=== PATIENT | male | born 1970 | race American Indian/Alaskan Native ===

== ENCOUNTER 2019-09-18 12:00 | Emergency (ER) | payer SELFPAY ==
--- NOTE | 2019-09-18 12:10 | Emergency Department Report ---
Blank Doc - Documentation Documentation: 48-year-old male that presents with nausea. HX of DM and HTN. This initial assessment/diagnostic orders/clinical plan/treatment(s) is/are subject to change based on patient's health status, clinical progression and re- assessment by fellow clinical providers in the ED. Further treatment and workup at subsequent clinical providers discretion. Patient/guardians urged not to elope from the ED as their condition may be serious if not clinically assessed and managed. Initial orders include: 1- Patient sent to [facility] for further evaluation and treatment 2- labs 3- UA
[2019-09-18 12:11] VITALS: BP 153/94
[2019-09-18 12:34] LABS: Hematocrit 48.9 % (35.5-45.6); Hemoglobin 16.9 gm/dl (11.8-15.2); Mean Corpuscular HGB Conc 35 % (32-34); Mean Corpuscular Volume 87 fl (84-94); Platelet Count 175 K/mm3 (140-440); Red Blood Count 5.59 M/mm3 (3.65-5.03); Red Cell Distribution Width 13.5 % (13.2-15.2)
[2019-09-18 12:36] LABS: Bilirubin,Urine NEG (Negative); Blood,Urine SM (Negative); Color,Urine Straw (Yellow); Mucus,Urine FEW /HPF; Protein,Urine <15 mg/dL mg/dL (Negative); Urobilinogen,Urine < 2.0 mg/dL (<2.0)
[2019-09-18 12:59] LABS: Alanine Aminotransferase 23 units/L (7-56); Albumin 4.9 g/dL (3.9-5); BUN/Creatinine Ratio 21; Blood Urea Nitrogen 17 mg/dL (9-20); Calcium 9.5 mg/dL (8.4-10.2); Hemolysis Index 5
[2019-09-18 13:20] LABS: Basophils % (Manual) 0 % (0.0-1.8); Eosinophils % (Manual) 0 % (0.0-4.3); Total Cells Counted 100
[2019-09-18 13:21] LABS: Platelet Estimate Consistent w Auto; RBC Morphology Normal
--- NOTE | 2019-09-18 15:37 | Emergency Department Report ---
ED General Adult HPI - General Chief complaint: Nausea/Vomiting/Diarrhea Stated complaint: NAUSEATED/HIGH SUGAR Time Seen by Provider: 09/18/19 12:08 Source: patient Mode of arrival: Ambulatory Limitations: No Limitations - History of Present Illness Initial comments: Patient presents to the emergency department with a chief complaint of nausea, polyuria, polydipsia. Patient states that he has diabetes and takes metformin for control of his type 2 diabetes. Patient states recently he has decreased from taking it twice a day to once daily due to the side effects of the medication. Patient denies abdominal pain, shortness of breath, or chest pain. -: Sudden Severity scale (0 -10): 0 Improves with: none Worsens with: none Associated Symptoms: denies other symptoms Treatments Prior to Arrival: none - Related Data Allergies Allergy/AdvReac Type Severity Reaction Status Date / Time amoxicillin Allergy Hives Verified 09/18/19 12:06 sulfamethoxazole Allergy Hives Verified 09/18/19 12:06 [From Bactrim] trimethoprim [From Bactrim] Allergy Hives Verified 09/18/19 12:06 ED Review of Systems ROS: Stated complaint: NAUSEATED/HIGH SUGAR Other details as noted in HPI Comment: All other systems reviewed and negative Constitutional: denies: chills, fever Eyes: denies: eye pain, eye discharge, vision change ENT: denies: ear pain, throat pain Respiratory: denies: cough, shortness of breath, wheezing Cardiovascular: denies: chest pain, palpitations Endocrine: no symptoms reported Gastrointestinal: denies: abdominal pain, nausea, diarrhea Genitourinary: denies: urgency, dysuria Musculoskeletal: denies: back pain, joint swelling, arthralgia Skin: denies: rash, lesions Neurological: denies: headache, weakness, paresthesias Psychiatric: denies: anxiety, depression Hematological/Lymphatic: denies: easy bleeding, easy bruising ED Past Medical Hx - Past Medical History Previous Medical History?: Yes Hx Hypertension: Yes Hx Diabetes: Yes - Surgical History Past Surgical History?: Yes Additional Surgical History: Cardiac cath - Social History Smoking Status: Never Smoker Substance Use Type: None ED Physical Exam - General Limitations: No Limitations General appearance: alert, in no apparent distress - Head Head exam: Present: atraumatic, normocephalic - Eye Eye exam: Present: normal appearance - ENT ENT exam: Present: mucous membranes dry - Neck Neck exam: Present: normal inspection - Respiratory Respiratory exam: Present: normal lung sounds bilaterally. Absent: respiratory distress - Cardiovascular Cardiovascular Exam: Present: regular rate, normal rhythm. Absent: systolic murmur, diastolic murmur, rubs, gallop - GI/Abdominal GI/Abdominal exam: Present: soft, normal bowel sounds. Absent: distended, tenderness - Rectal Rectal exam: Present: deferred - Extremities Exam Extremities exam: Present: normal inspection - Back Exam Back exam: Present: normal inspection - Neurological Exam Neurological exam: Present: alert, oriented X3 - Psychiatric Psychiatric exam: Present: normal affect, normal mood - Skin Skin exam: Present: warm, dry, intact, normal color. Absent: rash ED Course Vital Signs 09/18/19 12:09 Temperature 97.5 F L Pulse Rate 91 H Respiratory 18 Rate Blood Pressure 153/94 O2 Sat by Pulse 100 Oximetry ED Medical Decision Making - Lab Data Result diagrams: 09/18/19 12:14 09/18/19 12:14 Lab Results 09/18/19 09/18/19 09/18/19 Range/Units 12:14 12:14 12:14 WBC 3.6 L (4.5-11.0) K/mm3 RBC 5.59 H (3.65-5.03) M/mm3 Hgb 16.9 H (11.8-15.2) gm/dl Hct 48.9 H (35.5-45.6) % MCV 87 (84-94) fl MCH 30 (28-32) pg MCHC 35 H (32-34) % RDW 13.5 (13.2-15.2) % Plt Count 175 (140-440) K/mm3 Lymph % (Auto) Director Title Add Manual Diff Complete Total Counted 100 Seg Neutrophils % Director Title Seg Neuts % (Manual) 33.0 L (40.0-70.0) % Band Neutrophils % 0 % Lymphocytes % (Manual) 57.0 H (13.4-35.0) % Reactive Lymphs % (Man) 0 % Monocytes % (Manual) 10.0 H (0.0-7.3) % Eosinophils % (Manual) 0 (0.0-4.3) % Basophils % (Manual) 0 (0.0-1.8) % Metamyelocytes % 0 % Myelocytes % 0 % Promyelocytes % 0 % Blast Cells % 0 % Nucleated RBC % Not Reportable Seg Neutrophils # Man 1.2 L (1.8-7.7) K/mm3 Band Neutrophils # 0.0 K/mm3 Lymphocytes # (Manual) 2.1 (1.2-5.4) K/mm3 Abs React Lymphs (Man) 0.0 K/mm3 Monocytes # (Manual) 0.4 (0.0-0.8) K/mm3 Eosinophils # (Manual) 0.0 (0.0-0.4) K/mm3 Basophils # (Manual) 0.0 (0.0-0.1) K/mm3 Metamyelocytes # 0.0 K/mm3 Myelocytes # 0.0 K/mm3 Promyelocytes # 0.0 K/mm3 Blast Cells # 0.0 K/mm3 WBC Morphology Not Reportable Hypersegmented Neuts Not Reportable Hyposegmented Neuts Not Reportable Hypogranular Neuts Not Reportable Smudge Cells Not Reportable Toxic Granulation Not Reportable Toxic Vacuolation Not Reportable Dohle Bodies Not Reportable Pelger-Huet Anomaly Not Reportable Dayanara Rods Not Reportable Platelet Estimate Consistent w auto Clumped Platelets Not Reportable Plt Clumps, EDTA Not Reportable Large Platelets Not Reportable Giant Platelets Not Reportable Platelet Satelliting Not Reportable Plt Morphology Comment Not Reportable RBC Morphology Normal Dimorphic RBCs Not Reportable Polychromasia Not Reportable Hypochromasia Not Reportable Poikilocytosis Not Reportable Anisocytosis Not Reportable Microcytosis Not Reportable Macrocytosis Not Reportable Spherocytes Not Reportable Pappenheimer Bodies Not Reportable Sickle Cells Not Reportable Target Cells Not Reportable Tear Drop Cells Not Reportable Ovalocytes Not Reportable Helmet Cells Not Reportable [place] Bodies Not Reportable [place] Rings Not Reportable Donny Cells Not Reportable Bite Cells Not Reportable Crenated Cell Not Reportable Elliptocytes Not Reportable Acanthocytes (Spur) Not Reportable Rouleaux Not Reportable Hemoglobin C Crystals Not Reportable Schistocytes Not Reportable Malaria parasites Not Reportable Sorin Bodies Not Reportable Hem Pathologist Commnt No VBG pH 7.301 L (7.320-7.420) Sodium 135 L (137-145) mmol/L Potassium 4.0 (3.6-5.0) mmol/L Chloride 97.4 L (98-107) mmol/L Carbon Dioxide 24 (22-30) mmol/L Anion Gap 18 mmol/L BUN 17 (9-20) mg/dL Creatinine 0.8 (0.8-1.5) mg/dL Estimated GFR > 60 ml/min BUN/Creatinine Ratio 21 % Glucose 168 H (75-100) mg/dL Calcium 9.5 (8.4-10.2) mg/dL Total Bilirubin 0.30 (0.1-1.2) mg/dL AST 21 (5-40) units/L ALT 23 (7-56) units/L Alkaline Phosphatase 74 (35-129) units/L Total Protein 7.9 (6.3-8.2) g/dL Albumin 4.9 (3.9-5) g/dL Albumin/Globulin Ratio 1.6 % Urine Color (Yellow) Urine Turbidity (Clear) Urine pH (5.0-7.0) Ur Specific [place] (1.003-1.030) Urine Protein (Negative) mg/dL Urine Glucose (UA) (Negative) mg/dL Urine Ketones (Negative) mg/dL Urine Blood (Negative) Urine Nitrite (Negative) Urine Bilirubin (Negative) Urine Urobilinogen (<2.0) mg/dL Ur Leukocyte Esterase (Negative) Urine WBC (Auto) (0.0-6.0) /HPF Urine RBC (Auto) (0.0-6.0) /HPF Urine Mucus /HPF 09/18/19 Range/Units 12:14 WBC (4.5-11.0) K/mm3 RBC (3.65-5.03) M/mm3 Hgb (11.8-15.2) gm/dl Hct (35.5-45.6) % MCV (84-94) fl MCH (28-32) pg MCHC (32-34) % RDW (13.2-15.2) % Plt Count (140-440) K/mm3 Lymph % (Auto) Add Manual Diff Total Counted Seg Neutrophils % Seg Neuts % (Manual) (40.0-70.0) % Band Neutrophils % % Lymphocytes % (Manual) (13.4-35.0) % Reactive Lymphs % (Man) % Monocytes % (Manual) (0.0-7.3) % Eosinophils % (Manual) (0.0-4.3) % Basophils % (Manual) (0.0-1.8) % Metamyelocytes % % Myelocytes % % Promyelocytes % % Blast Cells % % Nucleated RBC % Seg Neutrophils # Man (1.8-7.7) K/mm3 Band Neutrophils # K/mm3 Lymphocytes # (Manual) (1.2-5.4) K/mm3 Abs React Lymphs (Man) K/mm3 Monocytes # (Manual) (0.0-0.8) K/mm3 Eosinophils # (Manual) (0.0-0.4) K/mm3 Basophils # (Manual) (0.0-0.1) K/mm3 Metamyelocytes # K/mm3 Myelocytes # K/mm3 Promyelocytes # K/mm3 Blast Cells # K/mm3 WBC Morphology Hypersegmented Neuts Hyposegmented Neuts Hypogranular Neuts Smudge Cells Toxic Granulation Toxic Vacuolation Dohle Bodies Pelger-Huet Anomaly Dayanara Rods Platelet Estimate Clumped Platelets Plt Clumps, EDTA Large Platelets Giant Platelets Platelet Satelliting Plt Morphology Comment RBC Morphology Dimorphic RBCs Polychromasia Hypochromasia Poikilocytosis Anisocytosis Microcytosis Macrocytosis Spherocytes Pappenheimer Bodies Sickle Cells Target Cells Tear Drop Cells Ovalocytes Helmet Cells [place] Bodies [place] Rings Donny Cells Bite Cells Crenated Cell Elliptocytes Acanthocytes (Spur) Rouleaux Hemoglobin C Crystals Schistocytes Malaria parasites Sorin Bodies Hem Pathologist Commnt VBG pH (7.320-7.420) Sodium (137-145) mmol/L Potassium (3.6-5.0) mmol/L Chloride (98-107) mmol/L Carbon Dioxide (22-30) mmol/L Anion Gap mmol/L BUN (9-20) mg/dL Creatinine (0.8-1.5) mg/dL Estimated GFR ml/min BUN/Creatinine Ratio % Glucose (75-100) mg/dL Calcium (8.4-10.2) mg/dL Total Bilirubin (0.1-1.2) mg/dL AST (5-40) units/L ALT (7-56) units/L Alkaline Phosphatase (35-129) units/L Total Protein (6.3-8.2) g/dL Albumin (3.9-5) g/dL Albumin/Globulin Ratio % Urine Color Straw (Yellow) Urine Turbidity Clear (Clear) Urine pH 5.0 (5.0-7.0) Ur Specific [place] 1.016 (1.003-1.030) Urine Protein <15 mg/dl (Negative) mg/dL Urine Glucose (UA) >=500 (Negative) mg/dL Urine Ketones Neg (Negative) mg/dL Urine Blood Sm (Negative) Urine Nitrite Neg (Negative) Urine Bilirubin Neg (Negative) Urine Urobilinogen < 2.0 (<2.0) mg/dL Ur Leukocyte Esterase Neg (Negative) Urine WBC (Auto) 1.0 (0.0-6.0) /HPF Urine RBC (Auto) 3.0 (0.0-6.0) /HPF Urine Mucus Few /HPF - Medical Decision Making Discussed plan of care with patient Critical care attestation.: If time is entered above; I have spent that time in minutes in the direct care of this critically ill patient, excluding procedure time. ED Disposition Clinical Impression: Nausea, Polydipsia Disposition: - TO HOME OR SELFCARE Is pt being admited?: No Does the pt Need Aspirin: No Condition: Stable Instructions: Acute Nausea and Vomiting (ED) Additional Instructions: return if worse Referrals: PRIMARY CARE, [Primary Care Provider] - 3-5 Days AMARIS ROBIN MD [Staff Physician] - 3-5 Days Time of Disposition: 15:35
== END 2019-09-18 15:45 | disposition home or self-care (01) ==
LOC: ED 12:00
DX: R63.1 Polydipsia (principal); R11.0 Nausea; R35.8 Other polyuria; I10 Essential (primary) hypertension; E11.9 Type 2 diabetes mellitus without complications; Z88.1 Allergy status to other antibiotic agents; Z88.2 Allergy status to sulfonamides; Z88.8 Allergy status to other drugs, medicaments and biological substances
CPT/HCPCS: 36415; 80053; 81001; 82805; 82962; 85007; 85025; 87086; 93005; 93010; 99283

== ENCOUNTER 2019-10-31 11:02 | Outpatient (CLI) | payer BC ==
[2019-10-31 11:32] LABS: Hematocrit 47.9 % (35.5-45.6); Hemoglobin 16.6 gm/dl (11.8-15.2); Mean Corpuscular HGB Conc 35 % (32-34); Mean Corpuscular Volume 87 fl (84-94); Platelet Count 161 K/mm3 (140-440); Red Blood Count 5.53 M/mm3 (3.65-5.03); Red Cell Distribution Width 13.4 % (13.2-15.2)
[2019-10-31 11:39] LABS: Bilirubin,Urine NEG (Negative); Blood,Urine NEG (Negative); Color,Urine Yellow (Yellow); Protein,Urine <15 mg/dL mg/dL (Negative); Urobilinogen,Urine < 2.0 mg/dL (<2.0)
[2019-10-31 11:41] LABS: Eosinophils # (Auto) 0.1 K/mm3 (0.0-0.4); Eosinophils % (Auto) 1.5 % (0.0-4.3); Monocytes # (Auto) 0.3 K/mm3 (0.0-0.8); Monocytes % (Auto) 9.8 % (0.0-7.3)
[2019-10-31 11:51] LABS: Alanine Aminotransferase 26 units/L (7-56); Albumin 4.7 g/dL (3.9-5); BUN/Creatinine Ratio 20; Blood Urea Nitrogen 16 mg/dL (9-20); Calcium 9.6 mg/dL (8.4-10.2); Chol/HDL Ratio 1.74 %; HDL Cholesterol 77 mg/dL (40-59); Hemolysis Index 10; LDL Cholesterol,Direct 50 mg/dL (50-130)
[2019-10-31 12:33] LABS: Basophils % (Manual) 0 % (0.0-1.8); Platelet Estimate Consistent w Auto; RBC Morphology Normal; Smudge Cells Few; Total Cells Counted 100
[2019-11-02 13:20] LABS: Vitamin D, 25-OH, D2 <4 ng/mL
== END 2019-10-31 11:03 | disposition home or self-care (01) ==
LOC: LAB 11:02
PROVIDERS: ATTEND Emergency Medicine
DX: E11.9 Type 2 diabetes mellitus without complications (principal); E66.09 Other obesity due to excess calories; N39.0 Urinary tract infection, site not specified; Z13.29 Encounter for screening for other suspected endocrine disorder; Z13.21 Encounter for screening for nutritional disorder; Z00.00 Encounter for general adult medical examination without abnormal findings
CPT/HCPCS: 36415; 80053; 80061; 81001; 82306; 82607; 83036; 84443; 85007; 85025

== ENCOUNTER 2019-11-11 16:14 | Outpatient (CLI) | payer BC | END 2019-11-11 16:15 | disposition home or self-care (01) | LOC: LAB 16:14 | PROVIDERS: ATTEND Internal Medicine | DX: Z11.3 Encounter for screening for infections with a predominantly sexual mode of transmission (principal); D72.819 Decreased white blood cell count, unspecified | CPT/HCPCS: 36415; 86592; 86689; 87529; 87591 ==

== ENCOUNTER 2019-11-14 14:18 | Emergency (ER) | payer BC ==
[2019-11-14] MEDS ORDERED: SODIUM CHLORIDE 0.9% 1000 ML 1,000 ML IV ONE (14:21)
--- NOTE | 2019-11-14 14:24 | Emergency Department Report ---
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 He has a history of hypertension. He had been on lisinopril for years but recently had angioedema. He was then changed to Norvasc and he developed severe diarrhea. Therefore he was started on metoprolol 50 mg twice daily. He took his first dose this morning. He has not taken his blood pressure medicines in about a week. Patient is also on metformin for his type 2 diabetes. While working in the ER today the patient said that he became swimmy headed. He was anxious at the time. He had a normal cath in 2004 and a negative stress test in 2017. Patient denies chest pain shortness of breath fever chills or cough. He is am bulatory and is overall in good health. EMR reviewed. I am concerned because the blood pressure in the left arm was 155/85 with a map of 102 and in the right arm was 117/53 with a map of 88. This in the context of the patient being swimmy headed I felt needed to rule out aortic dissection. Patient's heart rate was 60. Patient bikes 4 times a week and usually runs of low heart rate. But am concerned with 50 mg of metoprolol being given this morning. -: Sudden Location: head Associated Symptoms: denies other symptoms. denies: confusion, chest pain, cough, diaphoresis, fever/chills, headaches, loss of appetite, malaise, nausea/vomiting, rash, seizure, shortness of breath, syncope, weakness Treatments Prior to Arrival: none - Related Data Allergies Allergy/AdvReac Type Severity Reaction Status Date / Time amoxicillin Allergy Hives Verified 09/18/19 12:06 sulfamethoxazole Allergy Hives Verified 09/18/19 12:06 [From Bactrim] trimethoprim [From Bactrim] Allergy Hives Verified 09/18/19 12:06 ED Review of Systems ROS: Stated complaint: HIGH B/P Other details as noted in HPI Comment: All other systems reviewed and negative ED Past Medical Hx - Past Medical History Previous Medical History?: Yes Hx Hypertension: Yes Hx CVA: No Hx Heart Attack/AMI: No Hx Congestive Heart Failure: No Hx Diabetes: Yes Hx Deep Vein Thrombosis: No Hx Pulmonary Embolism: No Hx GERD: No Hx Liver Disease: No Hx Renal Disease: No Hx of Cancer: No Hx Sickle Cell Disease: No Hx Arthritis: No Hx Headaches / Migraines: No Hx Seizures: No Hx Kidney Stones: No Hx Psychiatric Treatment: No Hx Asthma: No Hx COPD: No Hx Tuberculosis: No Hx Dementia: No Hx HIV: No - Surgical History Past Surgical History?: Yes Additional Surgical History: Cardiac cath 2004; stress 2018 - Family History Family history: other (mom a/w; dad dec cva due to polysub/hiv) - Social History Smoking Status: Never Smoker Substance Use Type: None ED Physical Exam - General General appearance: alert, in no apparent distress - Head Head exam: Present: atraumatic, normocephalic - Eye Eye exam: Present: normal appearance - ENT ENT exam: Present: mucous membranes moist - Neck Neck exam: Present: normal inspection - Respiratory Respiratory exam: Present: normal lung sounds bilaterally. Absent: respiratory distress - Cardiovascular Cardiovascular Exam: Present: regular rate, normal rhythm. Absent: systolic murmur, diastolic murmur, rubs, gallop - GI/Abdominal GI/Abdominal exam: Present: soft, normal bowel sounds - Rectal Rectal exam: Present: deferred - Extremities Exam Extremities exam: Present: normal inspection - Back Exam Back exam: Present: normal inspection - Neurological Exam Neurological exam: Present: alert, oriented X3 - Psychiatric Psychiatric exam: Present: normal affect, normal mood - Skin Skin exam: Present: warm, dry, intact, normal color. Absent: rash ED Course Vital Signs 11/14/19 11/14/19 11/14/19 14:30 14:37 14:44 Temperature 98.2 F Pulse Rate 81 Respiratory 18 Rate Blood Pressure Blood Pressure 155/85 [Left] Blood Pressure 117/53 [Right] O2 Sat by Pulse 100 97 Oximetry 11/14/19 11/14/19 11/14/19 14:45 14:47 14:49 Temperature Pulse Rate 73 Respiratory 17 18 Rate Blood Pressure Blood Pressure 156/90 [Left] Blood Pressure 143/84 [Right] O2 Sat by Pulse 96 100 Oximetry 11/14/19 11/14/19 11/14/19 15:00 15:16 15:30 Temperature Pulse Rate 70 73 72 Respiratory 14 9 L 14 Rate Blood Pressure 125/64 125/64 124/69 Blood Pressure [Left] Blood Pressure [Right] O2 Sat by Pulse 95 98 96 Oximetry 11/14/19 11/14/19 15:46 16:00 Temperature Pulse Rate 69 77 Respiratory 18 21 Rate Blood Pressure 124/69 124/69 Blood Pressure [Left] Blood Pressure [Right] O2 Sat by Pulse 98 Oximetry - Reevaluation(s) Reevaluation #1: 11/14/19 14:24 home meds metformin and metoprolol 50 (just started today) Reevaluation #2: 11/14/19 14:24 intolerant to norvasc- diarrhea and abd pain christine allergy- angioedema ED Medical Decision Making - Lab Data Result diagrams: 11/14/19 14:33 11/14/19 14:33 - EKG Data -: EKG Interpreted by Me EKG shows normal: sinus rhythm Rate: normal - EKG Data When compared to previous EKG there are: no significant change Interpretation: no acute changes - Radiology Data Radiology results: report reviewed, image reviewed - Medical Decision Making Lab Results 11/14/19 11/14/19 11/14/19 Range/Units 14:33 14:33 14:33 WBC 4.5 (4.5-11.0) K/mm3 RBC 5.44 H (3.65-5.03) M/mm3 Hgb 16.7 H (11.8-15.2) gm/dl Hct 47.1 H (35.5-45.6) % MCV 87 (84-94) fl MCH 31 (28-32) pg MCHC 35 H (32-34) % RDW 13.9 (13.2-15.2) % Plt Count 167 (140-440) K/mm3 Lymph % (Auto) Dock Associate Seg Neutrophils % Dock Associate Sodium 142 (137-145) mmol/L Potassium 4.2 (3.6-5.0) mmol/L Chloride 102.4 (98-107) mmol/L Carbon Dioxide 25 (22-30) mmol/L Anion Gap 19 mmol/L BUN 15 (9-20) mg/dL Creatinine 1.0 (0.8-1.5) mg/dL Estimated GFR > 60 ml/min BUN/Creatinine Ratio 15 % Glucose 219 H (75-100) mg/dL POC Glucose (70-105) Calcium 10.2 (8.4-10.2) mg/dL Total Bilirubin 0.50 (0.1-1.2) mg/dL AST 23 (5-40) units/L ALT 26 (7-56) units/L Alkaline Phosphatase 83 (35-129) units/L Troponin T < 0.010 (0.00-0.029) ng/mL Total Protein 7.4 (6.3-8.2) g/dL Albumin 4.8 (3.9-5) g/dL Albumin/Globulin Ratio 1.8 % 11/14/19 Range/Units 15:18 WBC (4.5-11.0) K/mm3 RBC (3.65-5.03) M/mm3 Hgb (11.8-15.2) gm/dl Hct (35.5-45.6) % MCV (84-94) fl MCH (28-32) pg MCHC (32-34) % RDW (13.2-15.2) % Plt Count (140-440) K/mm3 Lymph % (Auto) Seg Neutrophils % Sodium (137-145) mmol/L Potassium (3.6-5.0) mmol/L Chloride (98-107) mmol/L Carbon Dioxide (22-30) mmol/L Anion Gap mmol/L BUN (9-20) mg/dL Creatinine (0.8-1.5) mg/dL Estimated GFR ml/min BUN/Creatinine Ratio % Glucose (75-100) mg/dL POC Glucose 224 H (70-105) Calcium (8.4-10.2) mg/dL Total Bilirubin (0.1-1.2) mg/dL AST (5-40) units/L ALT (7-56) units/L Alkaline Phosphatase (35-129) units/L Troponin T (0.00-0.029) ng/mL Total Protein (6.3-8.2) g/dL Albumin (3.9-5) g/dL Albumin/Globulin Ratio % Vital Signs 11/14/19 11/14/19 11/14/19 14:30 14:37 14:44 Temperature 98.2 F Pulse Rate 81 Respiratory 18 Rate Blood Pressure Blood Pressure 155/85 [Left] Blood Pressure 117/53 [Right] O2 Sat by Pulse 100 97 Oximetry 0511/14/19 11/14/19 14:45 14:47 14:49 Temperature Pulse Rate 73 Respiratory 17 18 Rate Blood Pressure Blood Pressure 156/90 [Left] Blood Pressure 143/84 [Right] O2 Sat by Pulse 96 100 Oximetry 11/14/19 15:00 Temperature Pulse Rate 70 Respiratory 14 Rate Blood Pressure 125/64 Blood Pressure [Left] Blood Pressure [Right] O2 Sat by Pulse 95 Oximetry Trending of blood pressure during ER stay has been reviewed. Labs reviewed. Troponin negative. CT scan with contrast of the chest negative for dissection. I had a long discussion with the patient about his blood pressure management, his labile blood pressure, his heart rate. Patient is being discharged home with detailed follow-up instructions. Patient has been given verbal and written discharge instructions and he verbalizes understanding. - Differential Diagnosis ro ao dissection; acs; cva; uncontrolled htn Critical care attestation.: If time is entered above; I have spent that time in minutes in the direct care of this critically ill patient, excluding procedure time. ED Disposition Clinical Impression: History of hypertension, Dizzy Disposition: DC-01 TO HOME OR SELFCARE Is pt being admited?: No Does the pt Need Aspirin: No Condition: Stable Instructions: Metoprolol (By mouth) Referrals: AMARIS ROBIN MD [Staff Physician] - 3-5 Days Time of Disposition: 16:09
[2019-11-14 15:17] LABS: Hematocrit 47.1 % (35.5-45.6); Hemoglobin 16.7 gm/dl (11.8-15.2); Mean Corpuscular HGB Conc 35 % (32-34); Mean Corpuscular Volume 87 fl (84-94); Platelet Count 167 K/mm3 (140-440); Red Blood Count 5.44 M/mm3 (3.65-5.03); Red Cell Distribution Width 13.9 % (13.2-15.2)
[2019-11-14 15:43] LABS: Alanine Aminotransferase 26 units/L (7-56); Albumin 4.8 g/dL (3.9-5); BUN/Creatinine Ratio 15; Blood Urea Nitrogen 15 mg/dL (9-20); Calcium 10.2 mg/dL (8.4-10.2); Hemolysis Index 10
[2019-11-14 16:20] LABS: RBC Morphology Normal; Smudge Cells 1+; Total Cells Counted 100
--- NOTE | 2019-11-14 17:22 | Cat Scan Report ---
CT OF THE CHEST WITH INTRAVENOUS CONTRAST INDICATION / CLINICAL INFORMATION: High blood pressure and dizziness. TECHNIQUE: The patient received 100 cc Omnipaque [address] scans at this location are performed using CT dose reduction for ALARA by means of automated exposure control. COMPARISON: None available. FINDINGS: The thoracic aorta is normal in caliber without dissection. No coronary artery calcification is seen. The tracheobronchial tree is normal. The lung parenchyma is clear. There is no evidence of adenopath y or effusion. The visualized upper abdomen is normal. No acute osseous abnormality is identified. IMPRESSION: No acute abnormality. Signer Name: Abel Thomas MD Signed: 11/14/2019 5:17 PM Workstation Name: [id number]
[2019-11-14 17:33] VITALS: BP 124/69
== END 2019-11-14 17:50 | disposition home or self-care (01) ==
LOC: ED 14:18
DX: R42 Dizziness and giddiness (principal); I10 Essential (primary) hypertension; E11.9 Type 2 diabetes mellitus without complications; Z88.1 Allergy status to other antibiotic agents; Z88.2 Allergy status to sulfonamides
CPT/HCPCS: 36415; 71260; 80053; 82962; 84484; 85007; 85025; 93005; 96360; 99284; J7030; Q9967